=== PATIENT | female | born 1985 | race African-American/Black ===

== ENCOUNTER 2017-11-16 11:18 | Inpatient (IN) | payer OTHER ==
[2017-11-16 13:16] VITALS: BMI 22.3
--- NOTE | 2017-11-16 16:53 | HP ---
CIWA Score - CIWA Score Nausea/Vomitin Muscle Tremors: 3 Anxiety: 3 Agitation: 3 Paroxysmal Sweats: 3 Orientation: 0-Oriented Tacttile Disturbances: 1-Very Mild Itch/Numbness Auditory Disturbances: 0-None Visual Disturbances: 0-None Headache: 2-Mild CIWA-Ar Total Score: 18 Admission ROS S - [facility] Chief Complaint: alcohol withdrawal sx Allergies/Adverse Reactions: Allergies Allergy/AdvReac Type Severity Reaction Status Date / Time haloperidol lactate Allergy Severe Difficulty Verified 11/16/17 15:20 [From Haldol] Breathing pork derived (porcine) Allergy Severe Difficulty Verified 11/16/17 15:20 Breathing History of Present Illness: 32 yo f with h/o alcohol use disorder requesting inpatient detoxification because of alcohol withdrawal sx, signed out of [facility] last week which is why she has benzo + in utox. occasional heorin use not daily use, has h/o laochol withdrawal seizures, no DTS PMHX no Si, HIV+, bipolar schizoaffective do nicotien dependence 10/day Exam Limitations: No Limitations - Ebola screening Have you traveled outside of the country in the last 21 days: No (N) Have you had contact with anyone from an Ebola affected area: No Have you been sick,other than usual withdrawal symptoms: No Do you have a fever: No - Review of Systems Constitutional: Chills, Diaphoresis, Malaise, Night Sweats, Changes in sleep, Unintentional Wgt. Loss EENT: reports: No Symptoms Reported Respiratory: reports: No Symptoms reported Cardiac: reports: No Symptoms Reported GI: reports: Diarrhea, Difficulty Swallowing, Nausea, Poor Appetite, Poor Fluid Intake, Vomiting, Indigestion : reports: No Symptoms Reported Musculoskeletal: reports: Joint Pain, Muscle Pain (withdraal sx) Integumentary: reports: Flushing, Sweating Neuro: reports: Headache, Numbness, Seizure, Tingling, Tremors, Weakness Endocrine: reports: Increased Thirst Hematology: reports: No Symptoms Reported Psychiatric: reports: Judgement Intact, Mood/Affect Appropiate, Orientated x3, Anxious, Depressed Other Systems: Reviewed and Negative Patient History - Patient Medical History Hx Anemia: No Hx Asthma: Yes Hx Chronic Obstructive Pulmonary Disease (COPD): No Hx Cancer: No Hx Cardiac Disorders: Yes (2006 heheart attack from post cardiomyopathy) Hx Congestive Heart Failure: No Hx Hypertension: No Hx Hypercholesterolemia: No Hx Pacemaker: No HX Cerebrovascular Accident: No Hx Seizures: Yes (1 WEEK AGO) Hx Dementia: No Hx Diabetes: No Hx Gastrointestinal Disorders: No Hx Liver Disease: No Hx Genitourinary Disorders: No Hx Sexually Transmitted Disorders: No Hx Renal Disease (ESRD): No Hx Thyroid Disease: No Hx Human Immunodeficiency Virus (HIV): Yes Hx Hepatitis C: No Hx Depression: No Hx Suicide Attempt: Yes (2010, so si at this time) Hx Bipolar Disorder: Yes Hx Schizophrenia: Yes - Patient Surgical History Past Surgical History: Yes Hx Neurologic Surgery: No Hx Cataract Extraction: No Hx Cardiac Surgery: No Hx Lung Surgery: No Hx Breast Surgery: No Hx Breast Biopsy: No Hx Abdominal Surgery: No Hx Appendectomy: No Hx Cholecystectomy: No Hx Genitourinary Surgery: No Hx Section: Yes (X3) Hx Orthopedic Surgery: No Anesthesia Reaction: No - PPD History Previous Implant?: Yes Documented Results: Negative w/proof Implanted On Prior [facility] Admission?: Yes Date: 05/15/13 Results: 0mm PPD to be Administered?: Yes - Reproductive History Patient is a Female of Child Bearing Age (11 -55 yrs old): Yes Last Menstrual Period: 11/16/17 Patient : No - Smoking Cessation Smoking history: Current every day smoker Have you smoked in the past 12 months: Yes Aproximately how many cigarettes per day: 10 Hx Chewing Tobacco Use: No Initiated information on smoking cessation: Yes 'Breaking Loose' booklet given: 11/16/17 - Substance & Tx. History Hx Alcohol Use: Yes Hx Substance Use: Yes Substance Use Type: Alcohol, Cocaine, Heroin, Prescribed, Tranquilizers Hx Substance Use Treatment: Yes ([facility]) - Substances Abused Alcohol Route: Oral Frequency: Daily Amount used: JOSE(3/5THS)/BEER-14 24OZ CANS Age of first use: 20 Date of Last Use: 11/15/17 Cocaine Route: Smoking Frequency: Daily Amount used: $70-80 Age of first use: 20 Date of Last Use: 11/15/17 Heroin Route: Inhalation Frequency: Daily Amount used: 2-3 BAGS Age of first use: 29 Date of Last Use: 11/15/17 Family Disease History - Family Disease History Family Disease History: Other: Father (addiction), Mother (addiction) Admission Physical Exam [facility] - Vital Signs Vital Signs: Vital Signs - 24 hr 11/16/17 13:11 Temperature 97 F L Pulse Rate 68 Respiratory 20 Rate Blood Pressure 124/76 - Physical General Appearance: Yes: Nourished, Appropriately Dressed, Disheveled, Mild Distress, Thin, Tremorous, Irritable, Sweating, Anxious HEENTM: Yes: Within Normal Limits, EOMI, Hearing grossly Normal, Normal ENT Inspection, Normocephalic, Normal Voice, HELEN, Pharynx Normal Respiratory: Yes: Chest Non-Tender, Lungs Clear, Normal Breath Sounds, No Respiratory Distress, No Accessory Muscle Use, Wheezing (scattered r>L) Neck: Yes: Within Normal Limits, No masses,lesions,Nodules, Supple, Trachea in good position Breast: Yes: Breast Exam Deferred Cardiology: Yes: Within Normal Limits, Regular Rhythm, Regular Rate, S1, S2 Abdominal: Yes: Within Normal Limits, Normal Bowel Sounds, Non Tender, Flat, Soft, Increased Bowel Sounds Genitourinary: Yes: Within Normal Limits Back: Yes: Within Normal Limits, Normal Inspection Musculoskeletal: Yes: Within Normal Limits, full range of Motion, Gait Steady, Pelvis Stable Extremities: Yes: Normal Capillary Refill, Normal Range of Motion, Non-Tender, Tremors Neurological: Yes: vocational guidance counselor II-XII NML intact, Fully Oriented, Alert, Motor Strength 5/5, Normal Response, Depressed Affect Integumentary: Yes: Normal Color, Warm, Diaphoresis, Moist Lymphatic: Yes: Within Normal Limits - Addiitonal Findings: withdrawal sx - Diagnostic (1) Alcohol dependence with uncomplicated withdrawal Current Visit: Yes Status: Acute (2) AIDS Current Visit: No Status: Active (3) BI-POLAR DISORDER Current Visit: No Status: Active (4) Cannabis dependence Current Visit: No Status: Active (5) Cocaine dependence Current Visit: No Status: Active (6) SCHIZOPHRENIA Current Visit: No Status: Active (7) Asthma Current Visit: Yes Status: Acute Cleared for Admission [facility] - Detox or Rehab [facility] Level of Care: Medically Managed Detox Regimen/Protocol: Librium [facility] Breath Alcohol Content Breath Alcohol Content: 0 Urine Drug Screen - Results Drug Screen Negative: No Urine Drug Screen Results: CATHI-Cocaine, BZO-Benzodiazepines
[2017-11-16] MEDS ORDERED: chlordiazePOXIDE HCL 25 MG CAPSULE PO PRN (16:55)
[2017-11-16] MEDS ORDERED: IBUPROFEN 400 MG TABLET (FP) PO PRN (16:55)
[2017-11-16] MEDS ORDERED: LOPERAMIDE HCL 2 MG CAPSULE PO PRN (16:55)
[2017-11-16] MEDS ORDERED: MAGNESIUM CITRATE 300 ML BOTTLE PO PRN (16:55)
[2017-11-16] MEDS ORDERED: ACETAMINOPHEN 325 MG TABLET (FP) PO PRN (16:55)
[2017-11-16] MEDS ORDERED: P-EPHED 60MG/TRIPROLIDI 2.5MG TABLET PO PRN (16:55)
[2017-11-16] MEDS ORDERED: MAGNESIUM HYDROX 2400MG/30ML ORAL SUSPENSION 30 ML CUP PO PRN (16:55)
[2017-11-16] MEDS ORDERED: hydrOXYzine PAMOATE 50 MG CAPSULE (FP) PO PRN (16:55)
[2017-11-16] MEDS ORDERED: NICOTINE POLACRILEX 2 MG GUM BC PRN (16:55)
[2017-11-16] MEDS ORDERED: guaiFENesin/D-METHORPHAN HB 10 ML UNIT-DOSE CUPS PO PRN (16:55)
[2017-11-16] MEDS ORDERED: MAG HYDROX/AL HYDROX/SIMETH 30 ML UNIT-DOSE CUP PO PRN (16:55)
[2017-11-16] MEDS ORDERED: MENTHOL/PHENOL 1 EACH UD MM PRN (16:55)
[2017-11-16] MEDS ORDERED: ALBUTEROL SO4 18 GM HFA INHALER IH PRN (16:57)
[2017-11-16] MEDS ORDERED: ALBUTEROL SO4 0.083% IH SOL 2.5 MG/3 ML VIAL.NEB. NEB PRN (17:01)
[2017-11-16] MEDS: NICOTINE 14 MG/24 HOURS TOPICAL PATCH TD SCH (17:45)
[2017-11-16] MEDS ORDERED: ALBUTEROL SO4 2.5/IPRATROPIUM 0.5 INH SOL 3 ML VIAL.NEB. NEB ONE (17:45)
[2017-11-16] MEDS ORDERED: chlordiazePOXIDE HCL 25 MG CAPSULE PO ONE (18:00)
[2017-11-16 20:48] LABS: URINE APPEARANCE CLEAR; URINE BILIRUBIN NEGATIVE (NEGATIVE); URINE BLOOD NEGATIVE (NEGATIVE); URINE COLOR AMBER; URINE GLUCOSE (UA) NEGATIVE (NEGATIVE); URINE KETONE TRACE (NEGATIVE); URINE LEUK ESTERASE NEGATIVE (NEGATIVE); URINE NITRITE NEGATIVE (NEGATIVE); URINE PROTEIN NEGATIVE (NEGATIVE); URINE UROBILINOGEN 4.0 E.U/dl mg/dL (0.2-1.0)
[2017-11-16] MEDS: THIAMINE HCL 100 MG TABLET (FP) PO SCH (22:38)
[2017-11-16] MEDS: chlordiazePOXIDE HCL 25 MG CAPSULE PO SCH (22:38)
[2017-11-17] MEDS: chlordiazePOXIDE HCL 25 MG CAPSULE PO SCH ×4 (05:52→22:12)
[2017-11-17] MEDS: EMTRICITABINE 200MG/TENOFOVIR 300MG PO SCH (08:06)
[2017-11-17] MEDS: ATAZANAVIR SO4 300 MG CAPSULE PO SCH (08:06)
[2017-11-17] MEDS: RITONAVIR 100 MG TABLET PO SCH (08:07)
[2017-11-17 09:54] LABS: HEMATOCRIT 40.9 % (32.4-45.2); HEMOGLOBIN 12.9 GM/dL (10.7-15.3); MCH 27.9 pg (25.7-33.7); MCHC 31.6 g/dl (32.0-36.0); MEAN CELL VOLUME 88.4 fl (80-96); MEAN PLT VOLUME 8.4 fl (7.5-11.1); PLATELET COUNT 382 K/MM3 (134-434); RBC 4.62 M/mm3 (3.60-5.2); RDW 15.7 % (11.6-15.6); WHITE BLOOD COUNT 7.4 K/mm3 (4.0-10.0)
[2017-11-17 10:12] LABS: CHLORIDE 102 mmol/L (98-107); POTASSIUM 3.9 mmol/L (3.5-5.1); SODIUM 136 mmol/L (136-145)
[2017-11-17 10:31] LABS: ALBUMIN 3.4 g/dl (3.4-5.0); ALK PHOS 89 U/L (45-117); ANION GAP 7 (8-16); BILIRUBIN,TOTAL 0.6 mg/dL (0.2-1.0); BLOOD UREA NITROGEN 13 mg/dL (7-18); CALCIUM 8.2 mg/dL (8.5-10.1); CO2 27 mmol/L (21-32); CREATININE 0.9 mg/dL (0.55-1.02); GLUCOSE,RANDOM 98 mg/dL (74-106); SGOT/AST 33 U/L (15-37); SGPT/ALT 31 U/L (12-78); TOT PROT 7.2 g/dl (6.4-8.2)
[2017-11-17] MEDS: NICOTINE 14 MG/24 HOURS TOPICAL PATCH TD SCH (10:34)
[2017-11-17] MEDS: PRENATAL VITAMINS W/ FOLIC ACID TABLET (FP) PO SCH (10:34)
[2017-11-17] MEDS: risperiDONE 1 MG TABLET (FP) PO SCH ×2 (10:35→22:10)
--- NOTE | 2017-11-17 10:38 | PN ---
S CIWA - CIWA Score Nausea/Vomitin-No Nausea/No Vomiting Muscle Tremors: 4-Moderate,w/Arms Extend Anxiety: 3 Agitation: 3 Paroxysmal Sweats: 3 Orientation: 0-Oriented Tacttile Disturbances: 0-None Auditory Disturbances: 0-None Visual Disturbances: 0-None Headache: 1-Very Mild CIWA-Ar Total Score: 14 BHS Progress Note (SOAP) Subjective: sweats shakes body aches interrupted sleep irritable Objective: 11/17/17 10:38 Vital Signs Temperature 97.5 F L 11/17/17 07:40 Pulse Rate 60 11/17/17 07:40 Respiratory Rate 16 11/17/17 07:40 Blood Pressure 142/68 11/17/17 07:40 O2 Sat by Pulse Oximetry (%) Laboratory Tests 11/16/17 11/17/17 11/17/17 19:00 05:45 05:45 WBC 7.4 RBC 4.62 Hgb 12.9 Hct 40.9 MCV 88.4 MCH 27.9 MCHC 31.6 L RDW 15.7 H D Plt Count 382 D MPV 8.4 Sodium 136 Potassium 3.9 Chloride 102 Carbon Dioxide 27 Anion Gap 7 L BUN 13 Creatinine 0.9 Creat Clearance w eGFR > 60 Random Glucose 98 Calcium 8.2 L Total Bilirubin 0.6 D AST 33 ALT 31 Alkaline Phosphatase 89 Total Protein 7.2 Albumin 3.4 Urine Color Yasmin Urine Appearance Clear Urine pH 6.0 Ur Specific [place] 1.028 Urine Protein Negative Urine Glucose (UA) Negative Urine Ketones Trace H Urine Blood Negative Urine Nitrite Negative Urine Bilirubin Negative Urine Urobilinogen 4.0 e.u/dl H Ur Leukocyte Esterase Negative aaox3 ambulating no acute distress Assessment: 11/17/17 10:38 withdrawal sx Plan: continue detox increase fluids
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
--- NOTE | 2017-11-17 15:18 | EKG ---
Test Reason : Blood Pressure : / mmHG Vent. Rate : 054 BPM Atrial Rate : 054 BPM P-R Int : 126 ms QRS Dur : 078 ms QT Int : 470 ms P-R-T Axes : 064 084 070 degrees QTc Int : 445 ms SINUS BRADYCARDIA POSSIBLE LEFT ATRIAL ENLARGEMENT NONSPECIFIC T WAVE ABNORMALITY Confirmed by MD MARGI, KYLEE ([id number]) on 11/17/2017 3:18:15 PM Referred By: Confirmed By:KYLEE KISER MD
[2017-11-17] MEDS: THIAMINE HCL 100 MG TABLET (FP) PO SCH (22:10)
[2017-11-17] MEDS: BENZTROPINE MESYLATE 1 MG TABLET (FP) PO SCH (22:10)
[2017-11-17] MEDS: DIVALPROEX NA *ER* EXTEND REL 500 MG TABLET.SA (FP) PO SCH (22:11)
[2017-11-18] MEDS: chlordiazePOXIDE HCL 25 MG CAPSULE PO SCH ×3 (05:46→17:56)
[2017-11-18] MEDS: RITONAVIR 100 MG TABLET PO SCH (09:05)
[2017-11-18] MEDS: EMTRICITABINE 200MG/TENOFOVIR 300MG PO SCH (09:05)
[2017-11-18] MEDS: ATAZANAVIR SO4 300 MG CAPSULE PO SCH (09:05)
[2017-11-18] MEDS: DIVALPROEX NA *ER* EXTEND REL 500 MG TABLET.SA (FP) PO SCH ×2 (10:32→22:29)
[2017-11-18] MEDS: NICOTINE 14 MG/24 HOURS TOPICAL PATCH TD SCH (10:32)
[2017-11-18] MEDS: risperiDONE 1 MG TABLET (FP) PO SCH ×2 (10:32→22:29)
[2017-11-18] MEDS: PRENATAL VITAMINS W/ FOLIC ACID TABLET (FP) PO SCH (10:32)
--- NOTE | 2017-11-18 12:57 | PN ---
S CIWA - CIWA Score Nausea/Vomitin-No Nausea/No Vomiting Muscle Tremors: 3 Anxiety: 2 Agitation: 1-Slight > Activity Paroxysmal Sweats: 3 Orientation: 0-Oriented Tacttile Disturbances: 0-None Auditory Disturbances: 0-None Visual Disturbances: 0-None Headache: 0-None Present CIWA-Ar Total Score: 9 BHS Progress Note (SOAP) Subjective: Sweating,anxiety,tremors Objective: 11/18/17 12:56 Vital Signs - 8 hr 11/18/17 11/18/17 06:24 10:31 Temperature 98 F 98.1 F Pulse Rate 64 98 H Respiratory 16 18 Rate Blood Pressure 119/69 120/64 Laboratory Tests 11/16/17 11/17/17 11/17/17 19:00 05:45 05:45 WBC 7.4 RBC 4.62 Hgb 12.9 Hct 40.9 MCV 88.4 MCH 27.9 MCHC 31.6 L RDW 15.7 H D Plt Count 382 D MPV 8.4 Sodium 136 Potassium 3.9 Chloride 102 Carbon Dioxide 27 Anion Gap 7 L BUN 13 Creatinine 0.9 Creat Clearance w eGFR > 60 Random Glucose 98 Calcium 8.2 L Total Bilirubin 0.6 D AST 33 ALT 31 Alkaline Phosphatase 89 Total Protein 7.2 Albumin 3.4 Urine Color Yasmin Urine Appearance Clear Urine pH 6.0 Ur Specific [place] 1.028 Urine Protein Negative Urine Glucose (UA) Negative Urine Ketones Trace H Urine Blood Negative Urine Nitrite Negative Urine Bilirubin Negative Urine Urobilinogen 4.0 e.u/dl H Ur Leukocyte Esterase Negative Valproic Acid RPR Titer 11/17/17 11/18/17 05:45 08:10 WBC RBC Hgb Hct MCV MCH MCHC RDW Plt Count MPV Sodium Potassium Chloride Carbon Dioxide Anion Gap BUN Creatinine Creat Clearance w eGFR Random Glucose Calcium Total Bilirubin AST ALT Alkaline Phosphatase Total Protein Albumin Urine Color Urine Appearance Urine pH Ur Specific [place] Urine Protein Urine Glucose (UA) Urine Ketones Urine Blood Urine Nitrite Urine Bilirubin Urine Urobilinogen Ur Leukocyte Esterase Valproic Acid < 3.000 L RPR Titer Nonreactive labs noted Assessment: 11/18/17 12:56 Withdrawal sx. Plan: Continue detox
[2017-11-18] MEDS: BENZTROPINE MESYLATE 1 MG TABLET (FP) PO SCH (22:29)
[2017-11-18] MEDS: chlordiazePOXIDE 5 MG CAPSULE PO SCH (22:29)
[2017-11-18] MEDS: THIAMINE HCL 100 MG TABLET (FP) PO SCH (22:29)
[2017-11-19] MEDS: chlordiazePOXIDE 5 MG CAPSULE PO SCH ×3 (06:39→17:50)
[2017-11-19] MEDS: RITONAVIR 100 MG TABLET PO SCH (10:19)
[2017-11-19] MEDS: NICOTINE 14 MG/24 HOURS TOPICAL PATCH TD SCH (10:19)
[2017-11-19] MEDS: EMTRICITABINE 200MG/TENOFOVIR 300MG PO SCH (10:19)
[2017-11-19] MEDS: DIVALPROEX NA *ER* EXTEND REL 500 MG TABLET.SA (FP) PO SCH ×2 (10:19→22:35)
[2017-11-19] MEDS: PRENATAL VITAMINS W/ FOLIC ACID TABLET (FP) PO SCH (10:19)
[2017-11-19] MEDS: ATAZANAVIR SO4 300 MG CAPSULE PO SCH (10:19)
[2017-11-19] MEDS: risperiDONE 1 MG TABLET (FP) PO SCH ×2 (10:20→23:23)
--- NOTE | 2017-11-19 13:18 | PN ---
[facility] Progress Note (SOAP) Subjective: mild tremor, anxiety, sweat Objective: 11/19/17 13:18 Vital Signs Temperature 97.7 F 11/19/17 10:27 Pulse Rate 95 H 11/19/17 10:27 Respiratory Rate 16 11/19/17 10:27 Blood Pressure 111/60 11/19/17 10:27 O2 Sat by Pulse Oximetry (%) Laboratory Last Values WBC 7.4 K/mm3 (4.0-10.0) 11/17/17 05:45 RBC 4.62 M/mm3 (3.60-5.2) 11/17/17 05:45 Hgb 12.9 GM/dL (10.7-15.3) 11/17/17 05:45 Hct 40.9 % (32.4-45.2) 11/17/17 05:45 MCV 88.4 fl (80-96) 11/17/17 05:45 MCH 27.9 pg (25.7-33.7) 11/17/17 05:45 MCHC 31.6 g/dl (32.0-36.0) L 11/17/17 05:45 RDW 15.7 % (11.6-15.6) H D 11/17/17 05:45 Plt Count 382 K/MM3 (134-434) D 11/17/17 05:45 MPV 8.4 fl (7.5-11.1) 11/17/17 05:45 Sodium 136 mmol/L (136-145) 11/17/17 05:45 Potassium 3.9 mmol/L (3.5-5.1) 11/17/17 05:45 Chloride 102 mmol/L (98-107) 11/17/17 05:45 Carbon Dioxide 27 mmol/L (21-32) 11/17/17 05:45 Anion Gap 7 (8-16) L 11/17/17 05:45 BUN 13 mg/dL (7-18) 11/17/17 05:45 Creatinine 0.9 mg/dL (0.55-1.02) 11/17/17 05:45 Creat Clearance w eGFR > 60 (>60) 11/17/17 05:45 Random Glucose 98 mg/dL (74-106) 11/17/17 05:45 Calcium 8.2 mg/dL (8.5-10.1) L 11/17/17 05:45 Total Bilirubin 0.6 mg/dL (0.2-1.0) D 11/17/17 05:45 AST 33 U/L (15-37) 11/17/17 05:45 ALT 31 U/L (12-78) 11/17/17 05:45 Alkaline Phosphatase 89 U/L (45-117) 11/17/17 05:45 Total Protein 7.2 g/dl (6.4-8.2) 11/17/17 05:45 Albumin 3.4 g/dl (3.4-5.0) 11/17/17 05:45 Urine Color Yasmin 11/16/17 19:00 Urine Appearance Clear 11/16/17 19:00 Urine pH 6.0 (5.0-8.0) 11/16/17 19:00 Ur Specific [place] 1.028 (1.001-1.035) 11/16/17 19:00 Urine Protein Negative (NEGATIVE) 11/16/17 19:00 Urine Glucose (UA) Negative (NEGATIVE) 11/16/17 19:00 Urine Ketones Trace (NEGATIVE) H 11/16/17 19:00 Urine Blood Negative (NEGATIVE) 11/16/17 19:00 Urine Nitrite Negative (NEGATIVE) 11/16/17 19:00 Urine Bilirubin Negative (NEGATIVE) 11/16/17 19:00 Urine Urobilinogen 4.0 e.u/dl mg/dL (0.2-1.0) H 11/16/17 19:00 Ur Leukocyte Esterase Negative (NEGATIVE) 11/16/17 19:00 Valproic Acid < 3.000 ug/ml (50-100) L 11/18/17 08:10 RPR Titer Nonreactive (NONREACTIVE) 11/17/17 05:45 lab noted Assessment: 11/19/17 13:19 withdrawal sx Plan: continue detox
[2017-11-19] MEDS: THIAMINE HCL 100 MG TABLET (FP) PO SCH (22:35)
[2017-11-19] MEDS: chlordiazePOXIDE HCL 10 MG CAPSULE PO SCH (22:35)
[2017-11-19] MEDS: BENZTROPINE MESYLATE 1 MG TABLET (FP) PO SCH (23:23)
[2017-11-20] MEDS: chlordiazePOXIDE HCL 10 MG CAPSULE PO SCH ×3 (06:06→17:31)
[2017-11-20] MEDS: PRENATAL VITAMINS W/ FOLIC ACID TABLET (FP) PO SCH (10:36)
[2017-11-20] MEDS: EMTRICITABINE 200MG/TENOFOVIR 300MG PO SCH (10:36)
[2017-11-20] MEDS: DIVALPROEX NA *ER* EXTEND REL 500 MG TABLET.SA (FP) PO SCH ×2 (10:36→22:15)
[2017-11-20] MEDS: ATAZANAVIR SO4 300 MG CAPSULE PO SCH (10:36)
[2017-11-20] MEDS: RITONAVIR 100 MG TABLET PO SCH (10:36)
[2017-11-20] MEDS: risperiDONE 1 MG TABLET (FP) PO SCH ×2 (10:37→22:15)
[2017-11-20] MEDS: NICOTINE 14 MG/24 HOURS TOPICAL PATCH TD SCH (10:37)
--- NOTE | 2017-11-20 11:39 | DS ---
[facility] Detox Discharge Summary Admission Date: 11/16/17 Discharge Date: 11/20/17 - History Pertinent Past History: AIDS Alcohol- induced seizure - Physical Exam Results Vital Signs: Vital Signs Temperature 97.0 F L 11/20/17 09:25 Pulse Rate 92 H 11/20/17 09:25 Respiratory Rate 18 11/20/17 09:25 Blood Pressure 110/69 11/20/17 09:25 O2 Sat by Pulse Oximetry (%) Pertinent Admission Physical Exam Findings: withdrawal sx Vital Signs Temperature 97.0 F L 11/20/17 09:25 Pulse Rate 92 H 11/20/17 09:25 Respiratory Rate 18 11/20/17 09:25 Blood Pressure 110/69 11/20/17 09:25 O2 Sat by Pulse Oximetry (%) Laboratory Last Values WBC 7.4 K/mm3 (4.0-10.0) 11/17/17 05:45 RBC 4.62 M/mm3 (3.60-5.2) 11/17/17 05:45 Hgb 12.9 GM/dL (10.7-15.3) 11/17/17 05:45 Hct 40.9 % (32.4-45.2) 11/17/17 05:45 MCV 88.4 fl (80-96) 11/17/17 05:45 MCH 27.9 pg (25.7-33.7) 11/17/17 05:45 MCHC 31.6 g/dl (32.0-36.0) L 11/17/17 05:45 RDW 15.7 % (11.6-15.6) H D 11/17/17 05:45 Plt Count 382 K/MM3 (134-434) D 11/17/17 05:45 MPV 8.4 fl (7.5-11.1) 11/17/17 05:45 Sodium 136 mmol/L (136-145) 11/17/17 05:45 Potassium 3.9 mmol/L (3.5-5.1) 11/17/17 05:45 Chloride 102 mmol/L (98-107) 11/17/17 05:45 Carbon Dioxide 27 mmol/L (21-32) 11/17/17 05:45 Anion Gap 7 (8-16) L 11/17/17 05:45 BUN 13 mg/dL (7-18) 11/17/17 05:45 Creatinine 0.9 mg/dL (0.55-1.02) 11/17/17 05:45 Creat Clearance w eGFR > 60 (>60) 11/17/17 05:45 Random Glucose 98 mg/dL (74-106) 11/17/17 05:45 Calcium 8.2 mg/dL (8.5-10.1) L 11/17/17 05:45 Total Bilirubin 0.6 mg/dL (0.2-1.0) D 11/17/17 05:45 AST 33 U/L (15-37) 11/17/17 05:45 ALT 31 U/L (12-78) 11/17/17 05:45 Alkaline Phosphatase 89 U/L (45-117) 11/17/17 05:45 Total Protein 7.2 g/dl (6.4-8.2) 11/17/17 05:45 Albumin 3.4 g/dl (3.4-5.0) 11/17/17 05:45 Urine Color Yasmin 11/16/17 19:00 Urine Appearance Clear 11/16/17 19:00 Urine pH 6.0 (5.0-8.0) 11/16/17 19:00 Ur Specific [place] 1.028 (1.001-1.035) 11/16/17 19:00 Urine Protein Negative (NEGATIVE) 11/16/17 19:00 Urine Glucose (UA) Negative (NEGATIVE) 11/16/17 19:00 Urine Ketones Trace (NEGATIVE) H 11/16/17 19:00 Urine Blood Negative (NEGATIVE) 11/16/17 19:00 Urine Nitrite Negative (NEGATIVE) 11/16/17 19:00 Urine Bilirubin Negative (NEGATIVE) 11/16/17 19:00 Urine Urobilinogen 4.0 e.u/dl mg/dL (0.2-1.0) H 11/16/17 19:00 Ur Leukocyte Esterase Negative (NEGATIVE) 11/16/17 19:00 Valproic Acid < 3.000 ug/ml (50-100) L 11/18/17 08:10 RPR Titer Nonreactive (NONREACTIVE) 11/17/17 05:45 labs noted - Treatment Hospital Course: Detox Protocol Followed, Detoxed Safely, Responded well, Discharged Condition Good, Rehab Referral Accepted Patient has Accepted a Rehab Referral to: [facility] on [facility] - Medication Discharge Medications: Ambulatory Orders Albuterol Sulfate Inhaler - [Ventolin HFA Inhaler -] 2 inh IH Q4H PRN 05/13/13 Atazanavir [Reyataz -] 300 mg PO DAILY 05/13/13 Trazodone HCl 100 mg PO HS 05/17/13 Benztropine Mesylate [Cogentin -] 1 mg PO DAILY #30 05/20/13 Divalproex Sodium [Depakote] 1,000 mg PO HS #60 05/20/13 Emtricitabine/Tenofovir [Truvada -] 1 tab PO DAILY #30 05/20/13 Risperidone [Risperdal -] 1 mg PO BID #60 05/20/13 Ritonavir [Norvir -] 100 mg PO DAILY #30 05/20/13 - Diagnosis (1) Alcohol dependence with uncomplicated withdrawal Current Visit: Yes Status: Acute (2) Cocaine dependence Current Visit: Yes Status: Acute (3) Cannabis dependence Current Visit: Yes Status: Active - AMA Did Patient Leave Against Medical Advice: No
--- NOTE | 2017-11-20 14:10 | PN ---
[facility] Progress Note Note: Pt lost her inpatient bed assignment on [facility]. Arrangement is being made to try get another for tomorrow Pt will stay on detox floor for monitoring till tomorrow. Pt is somnolent but agreeable with plan
[2017-11-20] MEDS: BENZTROPINE MESYLATE 1 MG TABLET (FP) PO SCH (22:15)
[2017-11-20] MEDS: THIAMINE HCL 100 MG TABLET (FP) PO SCH (22:15)
[2017-11-21] MEDS: ATAZANAVIR SO4 300 MG CAPSULE PO SCH (08:21)
[2017-11-21] MEDS: RITONAVIR 100 MG TABLET PO SCH (08:23)
[2017-11-21] MEDS: EMTRICITABINE 200MG/TENOFOVIR 300MG PO SCH (08:24)
[2017-11-21] MEDS: risperiDONE 1 MG TABLET (FP) PO SCH (09:12)
[2017-11-21] MEDS: PRENATAL VITAMINS W/ FOLIC ACID TABLET (FP) PO SCH (09:12)
[2017-11-21] MEDS: DIVALPROEX NA *ER* EXTEND REL 500 MG TABLET.SA (FP) PO SCH (09:12)
[2017-11-21] MEDS: NICOTINE 14 MG/24 HOURS TOPICAL PATCH TD SCH (09:13)
[2017-11-21 09:37] VITALS: BP 111/68; PULSE 78; TEMP 96.8
== END 2017-11-21 09:25 | disposition home or self-care (01) | DRG 774 ==
LOC: YASAS 11:18 → Y6N 15:50
PROVIDERS: ADMIT Internal Medicine; ATTEND Internal Medicine
PROC: HZ2ZZZZ Detoxification Services for Substance Abuse Treatment (ICD-10-PCS; principal; 2017-11-16)
DX: F10.230 Alcohol dependence with withdrawal, uncomplicated (principal); F14.20 Cocaine dependence, uncomplicated; F12.20 Cannabis dependence, uncomplicated; F17.210 Nicotine dependence, cigarettes, uncomplicated; F41.9 Anxiety disorder, unspecified; F31.9 Bipolar disorder, unspecified; F20.9 Schizophrenia, unspecified; B20 Human immunodeficiency virus [HIV] disease; G40.909 Epilepsy, unspecified, not intractable, without status epilepticus; J45.909 Unspecified asthma, uncomplicated; Z86.79 Personal history of other diseases of the circulatory system; Z88.8 Allergy status to other drugs, medicaments and biological substances; Z91.018 Allergy to other foods; Z91.5 Personal history of self-harm
CPT/HCPCS: 36415; 80053; 80164; 81003; 85027; 86593; 93005; 93010; 94640; J2794